=== PATIENT | male | born 1980 ===

== ENCOUNTER 2025-06-07 02:46 | Inpatient (IN) | payer MEDICAID, OTHER, SELFPAY ==
[2025-06-06 23:04] VITALS: BMI 33.5
[2025-06-06 23:05] VITALS: BP 147/125
--- NOTE | 2025-06-06 23:22 | ED.GENMED ---
History of Present Illness
General
Chief Complaint: Withdrawal Symptoms
Time Seen by Provider: 06/06/25 23:20
History of Present Illness
History of Present Illness:
FOCUSED PAST MEDICAL HISTORY
- The patient has a history of opioid use disorder
REVIEW OF OLD RECORDS
- Patient comes in from [facility].
Note:
CHIEF COMPLAINT(S)
Tachycardia and diaphoresis.
HISTORY OF PRESENT ILLNESS
The patient is a 45-year-old male with a history of fentanyl use. He reported the last use of fentanyl a few hours before arriving. Upon arrival, he experienced tachycardia with a heart rate over 120 beats per minute, diaphoresis, and an inability
to sit still. His pupils were markedly dilated, and he reported rhinorrhea and a significant tremor. The patient appeared anxious, with a Clinical Opiate Withdrawal Score (COWS) of 24. He is in police custody coming in from [facility]
PHYSICAL EXAM
- General: Appears in severe distress
- HEENT: Moist oral mucosa, marked pupillary dilatation
- Cardiovascular: No murmurs, tachycardic heart rate, regular rhythm, No chest wall tenderness
- Pulmonary: No respiratory distress, breath sounds are clear and equal
- Abdomen: Soft with no peritoneal signs, no tenderness
- Neurologic: Fair strength all extremities, no coordination deficits
- Psychiatric: Markedly tremulous
- Extremities: Nontender, no edema, moves all extremities equally
- Skin: Profuse diaphoresis, piloerection
- Neurological: Significant tremor, anxiety, and inability to sit still.
- Ophthalmological: Markedly dilated pupils.
- Skin: Profuse sweating.
PLAN
Management of opioid withdrawal symptoms.
DIFFERENTIAL DIAGNOSIS
- Opioid withdrawal syndrome
- Anxiety disorder
- Tachycardia secondary to stimulants or withdrawal
- Panic attack
- Infection causing systemic symptoms
- Endocrine disorder (e.g., hyperthyroidism)
- Cardiovascular disorder (e.g., arrhythmia)
- Alcohol withdrawal
- Benzodiazepine withdrawal
- Drug-induced hyperadrenergic state
SUMMARY OF ENCOUNTER
The patient presented with symptoms consistent with opioid withdrawal, including tachycardia, diaphoresis, dilated pupils, and tremor. After assessment, a treatment plan was initiated consisting of various symptomatic management medications.
ASSESSMENT
Opioid withdrawal syndrome.
EMERGENCY TREATMENTS ADMINISTERED
Intramuscular Valium (diazepam), intramuscular Toradol (ketorolac), oral Tylenol (acetaminophen), and oral Clonidine and Benadryl (diphenhydramine). Hydroxyzine was considered but not administered.
MEDS GIVEN IN ED
- Oral Tylenol
- Oral Clonidine
- Intramuscular Valium
- Oral Benadryl
- Intramuscular Toradol
MEDICAL DECISION MAKING
- Complexity of Data Reviewed: Chronic conditions affecting care: history of fentanyl use.
- Data:
- Category 1: No external records reviewed.
- Category 2: None mentioned.
- Category 3: No discussion of management with other providers noted.
DIAGNOSIS
F11.23 Opioid withdrawal.
Phy Exam
Physical Exam
Physical Exam:
See HPI
Course
Orders/Labs/Results
Orders:
Orders
06/06/25 23:36
Acetaminophen [Tylenol] 1,000 mg PO NOW STA
Clonidine [Catapres] 0.1 mg PO NOW STA
Diphenhydramine [Benadryl] 50 mg PO NOW STA
HydrOXYZINE [Atarax] 50 mg PO NOW STA
Ketorolac [Toradol] 30 mg IM NOW STA
Oxycodone Controlled Release [Oxycontin (Controlled Release)] 40 mg PO NOW STA
Oxycodone [Roxicodone] 10 mg PO NOW STA
Tizanidine [Zanaflex] 2 mg PO NOW STA
diazePAM [Valium Injection] 10 mg IM NOW STA
06/07/25 00:05
Ketorolac [Toradol] 30 mg .ROUTE .STK-MED ONE
06/07/25 00:36
Urine Drug Abuse Screen Urgent
06/07/25 01:02
CR Chest Portable - 1 View Urgent
Comment:
Reason For Exam: R IJ placement
Reason Study Needs to be Portable: Patient Unstable
06/07/25 01:03
Alcohol Urgent
Complete Blood Count/With Diff Urgent
Comprehensive Metabolic Panel Urgent
06/07/25 01:28
0.9% Sodium Chloride 1000 ml [Nss] 1,000 ml IV BOLUS
06/07/25 01:54
Admit/Transfer Patient As Directed
Co-Sign Provider:
Level of Care: Inpatient admission
Assign to:: ICU
Physician / Group: Dom
Diagnosis: Acute Opioid Withdrawal
Reason for Hospitalization: Acute Opioid Withdrawal
Expected length of stay greater than two midnights?: Yes
ELOS- Estimated Length of Stay in days: 3
I certify the patient meets the requirements for IP care: Yes
PRN Pain Medication Management As Directed
May give lesser potent ordered pain med per pt: Yes
preference::
Protocol:: Medication orders for pain may be administered in a
manner that supports deferring to patient preference
when the pt is:
- Requesting an ordered lesser potent pain medication.
Least to most potent pain medications are defined
as: acetaminophen < NSAID < tramadol < opioids
(morphine, oxycodone, hydromorphone).
- Requesting a lesser dose of the same medication IF
ORDERED.
- Requesting a less intrusive route of administration
if both routes are prescribed by the provider (PO <
IV).
06/07/25 01:55
Code Status As Directed
Resuscitation Status: Full Code
06/07/25 02:29
diazePAM [Valium Injection] 10 mg IV NOW STA
06/07/25 02:40
Ondansetron Injectable [Zofran] 4 mg IV Q6HPRN PRN
Abnormal Lab Results
06/07/25
01:03
WBC 13.4 H 10^3/uL
(4.8-10.8)
Abs Immat Gran (auto) 0.1 H 10^3/uL
(0-0.05)
Absolute Neuts (auto) 11.2 H 10^3/uL
(1.4-6.5)
Neutrophils % 83.9 H %
(42.2-75.2)
Lymphocytes % 11.2 L %
(20.5-51.1)
Chloride 111 H mmol/L
(98-107)
Creatinine 0.6 L mg/dL
(0.7-1.3)
06/07/25 01:03
06/07/25 01:03
Vital Signs
Initial and Last Documented VS:
Initial Vital Signs
Temp Pulse Resp BP Pulse Ox
37.0 C 81 18 147/125 99
06/06/25 23:05 06/06/25 23:05 06/06/25 23:05 06/06/25 23:05 06/06/25 23:05
Last Documented Vital Signs
Temp Pulse Resp BP Pulse Ox
36.9 C 104 31 164/92 96
06/07/25 01:40 06/07/25 02:45 06/07/25 02:45 06/07/25 02:00 06/07/25 02:45
Procedures
Central Line
Right Internal jugular:
Indication for procedure:: Poor IV access
Procedure completed by: , Dr. Encinas
Consent form signed: Yes
If no, reason: Emergency procedure
Anesthesia: 1% Lidocaine
Central line lumen: triple
Number of attempts: 1
Central line complications: none
Sterile dressing applied?: Yes
X-ray: shows good placement
*Pulse Oximetry
SaO2: 99
Oxygen Mode of Delivery: Room air
Patient hypoxic: no
*Critical Care Note
Total Time (30-74mins, 75-104mins- exclusive of procedures): 45min
comment:
The patient is becoming increasingly tachycardic, markedly elevated COWS score, requiring multiple reassessments and emergent meds given. The patient remains ill-appearing.
ED Attending Note
-
Portions of this chart may have been created with voice recognition software.� Occasional wrong word or��sound alike� substitutions may have occurred due to the inherent limitations of voice recognition software.
Discharge Plan
Departure
Patient Disposition: Admit
Date of Disposition: 06/07/25
Time of Disposition: 02:39
Presentation/result/management discussed w/ accepting MD/DO: Hospitalist
Discharge Problem:
Opiate withdrawal
Interventions
Interventions:
*Risk Screen - Suicide Last Done: 06/06/25 23:20
*General Assessment Last Done: 06/06/25 23:20
*Neglect/Abuse Screening Last Done: 06/06/25 23:20
*ED- Fall Risk Assessment Last Done: 06/06/25 23:20
*ED COVID-19 Vaccine History Last Done: 06/06/25 23:20
ED- Neurological Assessment Last Done: 06/06/25 23:24
ED-Psychological Assessment Last Done: 06/06/25 23:24
[2025-06-07] VITALS (47 sets, daily range): BP systolic 109–226; BP diastolic 60–199; BMI 31.6
[2025-06-07] MEDS: ZANAFLEX 2 MG PO ×3 (00:11→18:09)
[2025-06-07] MEDS: ROXICODONE 10 MG PO (00:11)
[2025-06-07] MEDS: TYLENOL 1000 MG PO ×3 (00:11→16:23)
[2025-06-07] MEDS: CATAPRES 0.1 MG PO ×3 (00:11→18:25)
[2025-06-07] MEDS: TORADOL 30 MG IM (00:12)
[2025-06-07] MEDS: BENADRYL 50 MG PO (00:12)
[2025-06-07] MEDS: OXYCONTIN (CONTROLLED RELEASE) 40 MG PO ×3 (00:12→16:22)
[2025-06-07] MEDS: VALIUM INJECTION 10 MG IM (00:12)
[2025-06-07 01:17] LABS: Hematocrit 41.7 % (39.0-52.0); Hemoglobin 14.2 g/dL (13.0-18.0); Mean Corp Hgb Conc. 34.1 g/dL (33.0-37.0); Mean Corpuscular Volume 87.8 fL (80.0-94.0); Nucleated Red Blood Cells % 0 % (-); Platelet Count 279 10^3/uL (130-400); Red Cell Dist. Width 13.2 % (11.5-14.5)
[2025-06-07 01:25] LABS: ALT (SGPT) 20 U/L (0-50); AST (SGOT) 20 U/L (17-59); Albumin 3.9 g/dl (3.5-5.0); Alkaline Phosphatase 76 U/L (38-126); Blood Urea Nitrogen 17 mg/dl (9-20); Calcium 9.1 mg/dl (8.4-10.2); Carbon Dioxide 27 mmol/L (22-30); Chloride 111 mmol/L (98-107); Estimated Creatinine Clearance > 125 ml/min; Glucose 91 mg/dl (70-99); Potassium 3.7 mmol/L (3.5-5.1); Sodium 143 mmol/L (135-145); Total Protein 6.8 g/dl (6.3-8.2); eGFR > 60.00
[2025-06-07] MEDS: NSS 1000 IV (01:37)
--- NOTE | 2025-06-07 02:03 | HPS.HSE ---
Family Physician
-
Family Physician: Facility [facility]
Chief Complaint
-
Withdrawal Symptoms
History of Present Illness
Patient is a 45y M with PMH significant for opioid use disorder who presents to ED complaining of withdrawal symptoms. Patient states that he typically smokes 1 bundle of fentanyl daily. His last use was about 1-2 hours prior to presentation.
Patient presents in police custody - having developed symptoms of shaking, sweating and nausea after his arrest this evening. Patient denies any N/V/D. He reports prior history of opioid withdrawal as well as prior history of inpatient
rehabilitation - last several months ago. He is currently enrolled in a methadone program - though he continues to smoke fentanyl as noted above.
Patient also uses methamphetamines on occasion - last use was about 2 days ago.
He has a prior history of IVDA - but has not used IV drugs in over a year.
Patient denies any other health issues or other prescription medications, etc.
Medical History
Past Medical History
Past Medical History: Reports Other
Additional Past Medical History:
Opioid Use Disorder
Past Surgical History: Reports None
Social History
Tobacco: Smoker (Current every day smoker.)
Alcohol: None
Drug: Other (Fentanyl (smoked / inhaled) - 1 bundle per day. Methamphetamines - occasionally. IVDA > 1 year ago.)
Family History
Family History: Not pertinent
Allergies / Home Medications
Allergies reflects when Allergies were last updated in [facility].
Home Medications with original date entered in [facility]
Allergy/Medication List:
Allergies
Allergy/AdvReac Type Severity Reaction Status Date / Time
No Known Allergies Allergy Unverified 06/06/25 23:45
Home Medications
methadone 10 mg/5 mL oral solution 40 mg PO DAILY 06/06/25
Review of Systems
-
History Source: Patient
A 12 point ROS was completed and negative except as noted: Yes
Constitutional: Reports Fatigue and Chills; Denies Fever
EENT: Denies Sore Throat
Respiratory: Denies Cough or Trouble Breathing
Cardiac: Reports Diaphoresis and Palpitations; Denies Chest Pain or Syncope
Abdomen/GI: Reports Nausea; Denies Abdominal Pain, Vomiting or Diarrhea
: Denies Dysuria or Flank Pain
Musculoskeletal: Denies Joint Pain or Edema
Neurological: Denies Dizzy or Headache
Psych: Reports Anxiety; Denies Depression
Physical Exam
Vital Signs
Vital Signs
Temp Pulse Resp BP Pulse Ox
98.4 F 69 20 161/141 97
06/07/25 01:40 06/07/25 01:15 06/07/25 01:40 06/07/25 01:00 06/07/25 00:30
Physical Exam
General: Other (Ill-appearing 45y M - diaphoretic and tremulous.)
HEENT: Moist mucous membranes and PERRLA
Respiratory: Clear; No Wheezes, Rales or Rhonchi
Cardiac: S1/S2 and Regular Rhythm; No Murmur
GI: Soft, Non Tender, Non Distended and Normal Bowel Sounds
Musculoskeletal: No Clubbing, No Cyanosis and No Edema
Neuro: AO x 3
Laboratory Results
-
06/07/25 01:03
06/07/25 01:03
Laboratory Results
Total Bilirubin 0.4 mg/dl (0.2-1.3) 06/07/25 01:03
AST 20 U/L (17-59) 06/07/25 01:03
ALT 20 U/L (0-50) 06/07/25 01:03
Alkaline Phosphatase 76 U/L (38-126) 06/07/25 01:03
Impression/Plan
-
A/P: Patient is a 45y M with PMH significant for opioid use disorder who presents to ED for evaluation of tremulousness, diaphoresis and anxiety due to opioid withdrawal.
Acute Opioid Withdrawal
Opioid Use Disorder
- Admit to ICU for further evaluation and treatment.
- Opioid withdrawal protocol with microdosing, symptom control, IVF support, etc.
- Follow for control of withdrawal symptoms / clinical improvement.
- Consider Psych eval if patient agreeable after acute withdrawal symptoms are improved.
- Consider inpatient rehabilitation if patient is agreeable.
DVT Prophylaxis: Lovenox
Code Status: Full
[2025-06-07] MEDS: VALIUM INJECTION 10 MG IV ×2 (02:33→06:15)
[2025-06-07] MEDS: ZOFRAN 4 MG IV (02:45)
[2025-06-07 04:08] LABS: Hematocrit 42.5 % (39.0-52.0); Hemoglobin 14.5 g/dL (13.0-18.0); Mean Corp Hgb Conc. 34.1 g/dL (33.0-37.0); Mean Corpuscular Volume 88.9 fL (80.0-94.0); Platelet Count 331 10^3/uL (130-400); Red Cell Dist. Width 13.1 % (11.5-14.5)
[2025-06-07] MEDS: LR 1000 IV (04:16)
[2025-06-07] MEDS: BELBUCA BUCCAL (04:18)
[2025-06-07 04:21] LABS: INR 0.95; PT 13.0 Sec (11.4-14.6)
[2025-06-07 04:22] LABS: APTT 28.1 Sec (23.4-35.0)
[2025-06-07 04:27] LABS: ALT (SGPT) 20 U/L (0-50); AST (SGOT) 22 U/L (17-59); Albumin 3.9 g/dl (3.5-5.0); Alkaline Phosphatase 74 U/L (38-126); Blood Urea Nitrogen 16 mg/dl (9-20); Calcium 9.3 mg/dl (8.4-10.2); Carbon Dioxide 25 mmol/L (22-30); Chloride 112 mmol/L (98-107); Estimated Creatinine Clearance > 125 ml/min; Glucose 84 mg/dl (70-99); Magnesium 1.9 mg/dl (1.6-2.3); Potassium 4.0 mmol/L (3.5-5.1); Sodium 147 mmol/L (135-145); Total Protein 6.8 g/dl (6.3-8.2); eGFR > 60.00
[2025-06-07] MEDS: ROXICODONE 20 MG PO ×2 (04:28→13:13)
[2025-06-07] MEDS: TRANDATE 10 MG IV (06:12)
--- NOTE | 2025-06-07 06:23 | PTCARENOTE ---
Patient received in room 3365 AAOx3, extremely diaphoretic, with vigorous tremors. Sinus tachy on the monitor. Plan of care for the shift reviewed with the patient. Patient verbalized not taking opiates such as methamphetamine and fentanyl with
admission questions. Explained to the patient that questions are being asked in order to provide the appropriate treatment and that answering 'no' to every question being asked regarding his history will make it difficult to treat him properly. When
administering the scheduled [place], the patient declined the medication as it would cause 'precept' withdrawal. Medications administered according to the COWS protocol. Valium and Labetalol 10 mg administered for SBP in the 200s. SPO2 at 90% on
room air. Patient placed on 2 liters O2/nc. Abdomen is round with positive BS. Patient bladder scanned for 785 cc and straight cath for 800 of yellow urine post urinal attempts. Right IJ TLC are patent with blood return. Site redressed due to pt's
diaphoresis. Dressings are not staying in place. LR at 150 ml/hr. Full assessment as noted on the worklist.
[2025-06-07] MEDS: ATARAX 50 MG PO (07:50)
[2025-06-07] MEDS: BELBUCA 300 MCG BUCCAL ×4 (07:50→20:55)
[2025-06-07] MEDS: CARDENE 200 IV ×2 (07:51→12:15)
--- NOTE | 2025-06-07 07:57 | CON.INTV ---
Consultation
Consultation Request
Date/Time Consultation Requested: 06/07/2025-7 AM
Date/Time Consultation Performed: 06/07/2025-7:30 AM
Requesting Provider: Hospitalist
Performing Provider: Dr. Morales
Reason for Consultation: Withdrawal/critical care management
Medical History
-
Chief Complaint: Opiate withdrawal, hypertensive emergency
History of Present Illness:
45-year-old obese smoking incarcerated male with a history of opioid use disorder presented with withdrawal symptoms-hold worker consulted for withdrawal/hypertensive emergency/critical care management 06/07/2025. The patient has significant shaking,
is alert, awake, no complaints of shortness of breath, no complaints of pain and moving all extremities.
Past Medical History
Past Medical History: None (Opioid use disorder. Cigarette smoker. Former IVDA)
Social History
Tobacco: Smoker
Alcohol: None
Drug: Narcotics (Fentanyl smokes 1 bundle per day), IVDA (Former) and Other (Occasional methamphetamines)
Living: Alf
Occupational Exposures: No known tuberculosis exposure
Environmental Exposures: No known asbestos exposure
Family History
Family History: Reviewed & Not Pertinent
Allergies / Home Medications
Allergies
Allergy/AdvReac Type Severity Reaction Status Date / Time
No Known Allergies Allergy Unverified 06/06/25 23:45
Home Medications
�Medication �Instructions �Recorded �Confirmed �Last Taken �Type
methadone 10 mg/5 mL oral solution 40 mg PO DAILY 06/06/25 06/06/25 1 Day Ago History
~06/05/25
Review of Systems
-
Unable to Obtain full review of systems at this time due to: Other (Per HPI)
Vitals / Labs / Diagnostic Testing
Vital Signs
Temp Pulse Resp BP Pulse Ox
98.5 F 105 15 226/116 97
06/07/25 03:52 06/07/25 06:12 06/07/25 05:15 06/07/25 06:12 06/07/25 06:00
Lab Data
06/07/25 03:55
06/07/25 03:55
Laboratory Results
06/07/25
03:55
PT 13.0
INR 0.95
APTT 28.1
Diagnostic Testing:
Physical Exam
-
Exam:
Well-nourished and well-developed diaphoretic and shaking
HEENT-atraumatic, normocephalic
Neck-supple, no JVD, no bruit
Heart-regular rate and rhythm-no murmurs, rubs or gallops
Chest-clear to auscultation, no wheezes, crackles
Back-no tenderness
Abdomen-soft, nontender, nondistended, no hepatosplenomegaly
Extremities-no cyanosis, clubbing, edema and good peripheral pulses
Integument-intact, no rashes, lesions or ecchymosis
Neurology-alert and oriented, nonfocal motor and sensory exam
Assessment
-
45-year-old obese smoking incarcerated male with a history of opioid use disorder presented with withdrawal symptoms-hold worker consulted for withdrawal/hypertensive emergency/critical care management 06/07/2025.
Opioid use disorder with opioid withdrawal
Hypertensive emergency
Leukocytosis
Hyponatremia
Conditions present prior to admission:
Opiate use disorder
Former IVDA
Polysubstance abuse-occasional methamphetamines, fentanyl inhalation 1 bag daily
Plan
Patient will be admitted to medical intensive care with active severe opioid withdrawal symptoms
Supplemental oxygen as needed
Intubate and mechanically ventilate if need to protect airway
Aspiration precautions
Check ABG if needed
Patient has many of the classic symptoms including gastrointestinal distress-abdominal cramping, diarrhea, nausea, lacrimation, rhinorrhea, diaphoresis, shivering and goosebumps in addition to hypertension, tachycardia, anxiety, irritability,
yawning, fever, etc.
First-line treatment is usually with buprenorphine (partial mu opioid agonist and kappa antagonist) rather than methadone or an alpha-2 adrenergic agonist (buprenorphine and methadone have been found to be superior to clonidine or lofexidine and
supervised withdrawal)
Consider following COWS-clinical opioid withdrawal scale for titration of medications
Buprenorphine 2-4 mg sublingually alone or in combination with naloxone up to 12 mg / 24 hours can be initiated
Clonidine can be added as well
Once withdrawal symptoms have been well-controlled for 24 hours a gradual taper of the patient's daily buprenorphine can begin-decrease 2 mg/day
Oxycodone coadministration to lessen the effects of withdrawal can also be initiated-example oxycodone 40 mg every 8 hours x 6 doses and then 20 mg every 8 hours x 3 doses
Methadone 10 can be used, however, need to monitor QTc and respiratory depression-methadone has a long half-life and needs to be increased cautiously
Clonidine and mhvoefwksx-juvlz-5 adrenergic agonist-can lessen many symptoms of opioid withdrawal and can relieve autonomic symptoms of sweating, diarrhea, intestinal cramps, nausea, anxiety and irritability
Consider psychiatric evaluation
Consider rehabilitation
With hypertensive emergency
Monitor for end organ effect of severe hypertension
Hydralazine as needed
Labetalol as needed
Begin nicardipine drip
Nitroprusside less attractive with potential for cyanide toxicity especially with renal insufficiency
Nitroglycerin if cardiac issues
Consider Nephrology consultation if hypertension persists
Consider workup of secondary causes including renal vascular/primary hyperaldosteronism/Baisden�s/pheochromocytoma/etc. if hypertension is difficult to control-in this patient's case it is due to opiate withdrawal
DVT prophylaxis
Nutrition
Early mobilization
Critical care statement: A total of 65 minutes of critical care time was provided for this patient today. This includes management of unstable vital signs, evaluation of the patient at bedside, reviewing the patient�s pertinent medical records
including radiographs, microbiology, laboratory evaluations, and��discussion with primary team, consultants, pharmacy, nutrition, physical therapy, case management, charge nurse, critical care nursing, and respiratory therapy.
Diagnostic data:
Chest x-ray 06/07/2025-placement of right internal jugular catheter, NAD otherwise
Data Reviewed
-
EKG: Report reviewed by me
Radiology: Report reviewed by me
Medical Tests (Nuc Med, Echo etc): Report reviewed by me
Labs: Labs reviewed by me
Critical Care Time (in minutes): 65
--- NOTE | 2025-06-07 09:00 | PTCARENOTE ---
pt restless , diaphoretic , ST on monitor with elevated BP 211/119 , IV Cardene drip started , tolerating clear liquid diet
--- NOTE | 2025-06-07 09:08 | W.PN.UPDATE ---
Update Note
Progress Note Update
Nonbillable note
1. Opioid withdrawal -patient uses 1 bundle of fentanyl apparently daily basis. Last use reported on 06/06. Patient currently encephalopathic and not able to provide any detail. Visibly tremulous/diaphoretic. Vital signs stable with significant
hypertension/tachycardia going on. Patient has been started on opiate withdrawal protocol. If not able to tolerate oral medication may require Precedex drip. Currently in ICU continue monitoring. Urine drug screen is pending.
2. Hypertensive emergency -significant elevated blood pressure of systolic 220s. Started on Cardene drip.
3. Leukocytosis without fever -chest x-ray clear. No reported abdominal or complaints. No track mortensen on examination although bacteremia needs to be ruled out if spikes fever and will require blood culture. Monitor off of antibiotics for now.
4. Hypernatremia -from decreased oral intake and volume loss with significant diaphoresis. Maintain on D5 half NS.
[2025-06-07] MEDS: D5/0.45%NACL 1000 IV ×2 (09:29→22:15)
--- NOTE | 2025-06-07 09:53 | CM ---
Addendum entered by Leatha Gong 06/07/25 09:58:
[facility] staff notified via phone that clinicals were faxed and confirmation received that fax was received
Original Note:
Plan: Discharge to [facility] when medically stable ; clinicals faxed to [facility], fax # [phone]
--- NOTE | 2025-06-07 12:37 | PTCARENOTE ---
BP controlled on carbene gtt , continues with opioid withdraw current COWS score 21 protocol followed
--- NOTE | 2025-06-07 17:37 | PTCARENOTE ---
pt weaned off of Cardene drip , COWS score 21 , protocol followed
[2025-06-07] MEDS: LOVENOX 40 MG SC (18:06)
[2025-06-08] VITALS (41 sets, daily range): BP systolic 122–177; BP diastolic 60–113; BMI 31.1
[2025-06-08] MEDS: OXYCONTIN (CONTROLLED RELEASE) 40 MG PO ×4 (00:15→22:51)
[2025-06-08] MEDS: BELBUCA 300 MCG BUCCAL (00:15)
[2025-06-08] MEDS: TYLENOL 1000 MG PO ×4 (00:15→22:52)
[2025-06-08] MEDS: CARDENE 200 IV ×2 (01:45→10:05)
--- NOTE | 2025-06-08 02:00 | PTCARENOTE ---
Cardene gtt restarted per protocol.
[2025-06-08] MEDS: ZANAFLEX 2 MG PO (04:38)
[2025-06-08 05:03] LABS: Hematocrit 42.6 % (39.0-52.0); Hemoglobin 14.5 g/dL (13.0-18.0); Mean Corp Hgb Conc. 34.0 g/dL (33.0-37.0); Mean Corpuscular Volume 88.4 fL (80.0-94.0); Platelet Count 290 10^3/uL (130-400); Red Cell Dist. Width 13.4 % (11.5-14.5)
[2025-06-08 05:34] LABS: ALT (SGPT) 18 U/L (0-50); AST (SGOT) 22 U/L (17-59); Albumin 3.8 g/dl (3.5-5.0); Alkaline Phosphatase 75 U/L (38-126); Blood Urea Nitrogen 8 mg/dl (9-20); Calcium 9.3 mg/dl (8.4-10.2); Carbon Dioxide 28 mmol/L (22-30); Chloride 108 mmol/L (98-107); Estimated Creatinine Clearance > 125 ml/min; Glucose 101 mg/dl (70-99); Magnesium 2.0 mg/dl (1.6-2.3); Potassium 3.1 mmol/L (3.5-5.1); Sodium 140 mmol/L (135-145); Total Protein 6.8 g/dl (6.3-8.2); eGFR > 60.00
[2025-06-08] MEDS: KCL 40 MEQ PO (06:17)
[2025-06-08] MEDS: KCL 270 MEQ IV (06:31)
--- NOTE | 2025-06-08 06:43 | PTCARENOTE ---
K rider and PO potassium administered by this RN per order.
[2025-06-08] MEDS: SUBUTEX 2 MG SL ×3 (08:22→22:51)
--- NOTE | 2025-06-08 09:00 | PTCARENOTE ---
pt ST on monitor , BP on 5mcg Cardene 138 systolic now on 7.5mcg , placed on contact precautions MRSA positive with nares swab
--- NOTE | 2025-06-08 09:31 | W.PN.INTV ---
Today's Communication / Plan
Recommendations
Continue to treat opiate withdrawal
Oxycodone and reducing doses
Buprenorphine
Wean clonidine
If able to be weaned off Cardene then transfer out of ICU-garment cutter will sign off-call pulmonary if respiratory issues arise
Assessment
-
45-year-old obese smoking incarcerated male with a history of opioid use disorder presented with withdrawal symptoms-garment cutter consulted for withdrawal/hypertensive emergency/critical care management 06/07/2025.
Opioid use disorder with opioid withdrawal
Hypertensive emergency
Leukocytosis-no other signs or symptoms of infection
Hyponatremia
Conditions present prior to admission:
Opiate use disorder
Former IVDA
Polysubstance abuse-occasional methamphetamines, fentanyl inhalation 1 bag daily
Plan
Remains critically ill on Cardene for hypertensive urgency
Supplemental oxygen as needed-currently 96% on room air
Aspiration precautions
Chest x-ray without infiltrate
Patient has many of the classic symptoms including gastrointestinal distress-abdominal cramping, diarrhea, nausea, lacrimation, rhinorrhea, diaphoresis, shivering and goosebumps in addition to hypertension, tachycardia, anxiety, irritability,
yawning, fever, etc.
First-line treatment is usually with buprenorphine (partial mu opioid agonist and kappa antagonist) rather than methadone or an alpha-2 adrenergic agonist (buprenorphine and methadone have been found to be superior to clonidine or lofexidine and
supervised withdrawal)
Follow COWS-clinical opioid withdrawal scale for titration of medications-decrease from 21 to today 12
Buprenorphine 2-4 mg sublingually alone or in combination with naloxone up to 12 mg / 24 hours can be initiated
Clonidine can be added as well
Once withdrawal symptoms have been well-controlled for 24 hours a gradual taper of the patient's daily buprenorphine can begin-decrease 2 mg/day
Oxycodone coadministration to lessen the effects of withdrawal can also be initiated-example oxycodone 40 mg every 8 hours x 6 doses and then 20 mg every 8 hours x 3 doses
Methadone 10 can be used, however, need to monitor QTc and respiratory depression-methadone has a long half-life and needs to be increased cautiously
Clonidine and [id number] adrenergic agonist-can lessen many symptoms of opioid withdrawal and can relieve autonomic symptoms of sweating, diarrhea, intestinal cramps, nausea, anxiety and irritability
Consider psychiatric evaluation
Consider rehabilitation
With hypertensive emergency
Monitor for end organ effect of severe hypertension
Hydralazine as needed
Labetalol as needed
Begin nicardipine drip-attempt to wean
Consider Nephrology consultation if hypertension persists
Consider workup of secondary causes including renal vascular/primary hyperaldosteronism/[place]�s/pheochromocytoma/etc. if hypertension is difficult to control-in this patient's case it is due to opiate withdrawal
DVT prophylaxis-on Lovenox
Nutrition
Early mobilization
If able to be weaned off Cardene drip then transferred out of ICU-call pulmonary if respiratory issues arise
Critical care statement: A total of 40 minutes of critical care time was provided for this patient today. This includes management of unstable vital signs, evaluation of the patient at bedside, reviewing the patient�s pertinent medical records
including radiographs, microbiology, laboratory evaluations, and��discussion with primary team, consultants, pharmacy, nutrition, physical therapy, case management, charge nurse, critical care nursing, and respiratory therapy.
Diagnostic data:
Chest x-ray 06/07/2025-placement of right internal jugular catheter, NAD otherwise
Subjective Dataa
Subjective Data
Date of Service:
Date of Service: June 08, 2025
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
Subjective:
Withdrawal symptoms improved, still going through some withdrawal, hypertension still persist, no shortness of breath, chest pain
Review of Systems
General: Other ( per HPI)
Objective Data
Data Reviewed
Vital Signs / I&O / Oxygen:
Vital Signs
Temp Pulse Resp BP Pulse Ox
98.4 F 103 24 158/82 96
06/08/25 04:52 06/08/25 06:15 06/08/25 06:15 06/08/25 06:00 06/07/25 21:00
Intake and Output
06/07/25 06/08/25 06/09/25
06:59 06:59 06:59
Intake Total 300 / 900 4115.0 / 4115.0
Output Total 2650 / 2650
Balance 300 / 900 1465.0 / 1465.0
SaO2 96
Nasal Cannula flow liters per 2
minute
Physical Exam
General: Respiratory Distress (n) and Comfortable
HEENT: Normocephalic, Anicteric and Moist Mucous Membranes
Cardiovascular: Regular Rhythm (Tachycardia)
Respiratory: Crackles (n), Rhonchi (n), Non-Labored Respirations, Accessory Resp Muscle Use (n) and Stridor (n)
GI: Soft, Non Distended and Non Tender
Neurology: Awake, Alert and No Motor Deficits
Skin: Warm, Good Color, Cyanosis (n), Jaundice (n) and Rash (n)
Labs/Micro/Reports
Lab Data
06/08/25 04:43
Microbiology
06/07/25 05:08 Nose MRSA Screen - Final
Staph aureus MRSA
[2025-06-08] MEDS: D5/0.45%NACL 1000 IV (11:51)
[2025-06-08 12:30] LABS: Blood Urea Nitrogen 7 mg/dl (9-20); Calcium 9.3 mg/dl (8.4-10.2); Carbon Dioxide 27 mmol/L (22-30); Chloride 110 mmol/L (98-107); Estimated Creatinine Clearance > 125 ml/min; Glucose 162 mg/dl (70-99); Potassium 3.6 mmol/L (3.5-5.1); Sodium 140 mmol/L (135-145); eGFR > 60.00
--- NOTE | 2025-06-08 13:17 | W.PN.HOSP.TC ---
Addendum entered and electronically signed by Roddy Rosales MD 06/18/25 15:31:
Add on to diagnosis list :
Acute toxic encephalopathy
Original Note:
Today's Communication/Plan
-
Continue per withdrawal protocol
Start Coreg for blood pressure control
Follow-up urine drug screen
monitor for fever
Assessment / Plan
Assessment / Plan
Acute Opioid Withdrawal
Opioid Use Disorder
-Currently on opiate withdrawal protocol
-COWS score remains elevated
-Getting buprenorphine/oxycodone dosing
-Of note patient was on methadone 40 mg daily prescribed by substance use clinic, last dose was on . Will not resume as patient likely will not be able to get in half-way and will potentially withdraw from methadone as well
Hypertensive emergency
- Associated with opioid withdrawal
- Urine drug screen pending, need to rule out any stimulant use
- Requiring on and off Cardene drip
- Coreg started for BP control
Leukocytosis without fever
-chest x-ray clear. No reported abdominal or complaints.
-No track mortensen on examination although bacteremia needs to be ruled out if spikes fever and will require blood culture. Monitor off of antibiotics for now.
Hypernatremia -resolved
-from decreased oral intake and with insensible loss from diaphoresis
-stop further IVF.
Hypokalemia
-replaced
Lovenox
Full code
Total critical care time 40 mins . Total critical care time documented does not include time spent on separately billed procedures or the services of residents, students, nurses or physician assistants. I personally saw and examined the patient. I
have reviewed all diagnostic interpretations and treatment plans as written. I was present for the taylor portions of any procedures performed and the inclusive time noted in any critical care statement. Critical care time includes patient management
by me, time spent at the patients bedside, time to review lab and imaging results, discussing patient care, documentation in the medical record, and time spent with the family or caregiver.
Anticipated Discharge: 24 - 48 hours
Subjective/Interval History
-
Date of Service: June 08, 2025
Improved
Remain visibly diaphoretic
Continued to remain tachycardic/hypertensive
No reported nausea vomiting diarrhea
afebrile
Objective Data
-
Labs:
Laboratory Results
06/08/25 06/08/25
04:43 12:07
WBC 16.1 H
Hgb 14.5
Hct 42.6
Plt Count 290
Sodium 140 140
Potassium 3.1 L 3.6
Chloride 108 H 110 H
Carbon Dioxide 28 27
BUN 8 L 7 L
Creatinine 0.5 L 0.5 L
Glucose 101 H 162 H
Calcium 9.3 9.3
Total Bilirubin 0.7
AST 22
ALT 18
Alkaline Phosphatase 75
Vital Signs:
Vital Signs
Temp Pulse Resp BP Pulse Ox
98.0 F 114 27 133/60 100
06/08/25 11:00 06/08/25 11:30 06/08/25 10:30 06/08/25 11:30 06/08/25 08:00
I&O
06/07/25 06/08/25 06/09/25
06:59 06:59 06:59
Intake Total 300 / 900 4115.0 / 4215.0 787.5 / 787.5
Output Total 2650 / 2650 700 / 700
Balance 300 / 900 1465.0 / 1565.0 87.5 / 87.5
Review of Systems
-
Respiratory: Reports No Symptoms
Cardiac: Reports No Symptoms
Abdomen/GI: Reports No Symptoms
Physical Exam
-
General: Negative Appears in Distress or Pain
HEENT: Negative Oxygen
Respiratory: Clear to Auscultation
Cardiac: Regular Rhythm and Tachycardic
GI: Soft, Nontender, Nondistended and Normal Bowel Sounds
Neuro: Awake, Alert and Oriented
Psych: Calm
[2025-06-08] MEDS: COREG 12.5 MG PO ×2 (13:55→19:42)
--- NOTE | 2025-06-08 14:08 | PTCARENOTE ---
cows score 8 , repeat potassium 3.6 , weaned down on Cardene gtt currently at 2.5 mg
[2025-06-08] MEDS: LOVENOX 40 MG SC (18:05)
[2025-06-08] MEDS: SUBUTEX SL (18:08)
--- NOTE | 2025-06-08 18:21 | PTCARENOTE ---
pt cardene gtt off as of 1800 , COWS score 1
--- NOTE | 2025-06-08 20:00 | PTCARENOTE ---
Resumed care of pt this evening. Received pt off cardene gtt.
[2025-06-09] VITALS (20 sets, daily range): BP systolic 132–201; BP diastolic 78–111; BMI 30.9
--- NOTE | 2025-06-09 02:30 | PTCARENOTE ---
Pt's triple lumen IJ dressing changed by this RN.
[2025-06-09 03:09] LABS: Hematocrit 45.3 % (39.0-52.0); Hemoglobin 15.2 g/dL (13.0-18.0); Mean Corp Hgb Conc. 33.6 g/dL (33.0-37.0); Mean Corpuscular Volume 89.5 fL (80.0-94.0); Platelet Count 297 10^3/uL (130-400); Red Cell Dist. Width 13.9 % (11.5-14.5)
[2025-06-09 03:51] LABS: ALT (SGPT) 18 U/L (0-50); AST (SGOT) 22 U/L (17-59); Albumin 3.6 g/dl (3.5-5.0); Alkaline Phosphatase 67 U/L (38-126); Blood Urea Nitrogen 18 mg/dl (9-20); Calcium 10.0 mg/dl (8.4-10.2); Carbon Dioxide 27 mmol/L (22-30); Chloride 111 mmol/L (98-107); Estimated Creatinine Clearance > 125 ml/min; Glucose 92 mg/dl (70-99); Potassium 4.1 mmol/L (3.5-5.1); Sodium 142 mmol/L (135-145); Total Protein 6.7 g/dl (6.3-8.2); eGFR > 60.00
--- NOTE | 2025-06-09 04:00 | PTCARENOTE ---
Pt's BP maintained while off cardene gtt.
[2025-06-09] MEDS: COREG 12.5 MG PO (07:43)
[2025-06-09] MEDS: OXYCONTIN (CONTROLLED RELEASE) 20 MG PO ×2 (07:43→15:21)
[2025-06-09] MEDS: TYLENOL 1000 MG PO ×2 (07:43→15:21)
[2025-06-09] MEDS: SUBUTEX 4 MG SL ×3 (07:44→18:03)
--- NOTE | 2025-06-09 08:05 | PTCARENOTE ---
Rec'd care of patient at 0700. Patient resting comfortably. AAOx3. Slight tremors observed. COWS 3. SB/NSR on tele monitor. Cardene off since 06/08. Lung sounds cta on RA. +BS. No BM. Appetite good. Voiding via urinal. RIJ capped. See worklist
for full assessment and care.
--- NOTE | 2025-06-09 08:12 | W.PN.INTV ---
Today's Communication / Plan
Recommendations
Continue to treat opiate withdrawal
Oxycodone and reducing doses
Buprenorphine
Patient is stable for transfer out of ICU. Will first have IV team place a peripheral IV and remove central line before transferring him out of the ICU. No additional recommendations at this time. Systems Architect/Pulmonary service will now sign off.
Please reconsult if there are any additional questions/concerns, or if patient's respiratory status deteriorates.
Assessment
-
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
Opioid use disorder with opioid withdrawal
Hypertensive emergency - now resolved
Leukocytosis-no other signs or symptoms of infection
Hyponatremia - resolved
Conditions present prior to admission:
Opiate use disorder
Former IVDA
Polysubstance abuse-occasional methamphetamines, fentanyl inhalation 1 bag daily
Plan
Patient has improved, now been off Cardene since yesterday.
Supplemental oxygen as needed
Aspiration precautions
Initially, patient had many of the classic symptoms including gastrointestinal distress-abdominal cramping, diarrhea, nausea, lacrimation, rhinorrhea, diaphoresis, shivering and goosebumps in addition to hypertension, tachycardia, anxiety,
irritability, yawning, fever, etc.
First-line treatment is usually with buprenorphine (partial mu opioid agonist and kappa antagonist) rather than methadone or an alpha-2 adrenergic agonist (buprenorphine and methadone have been found to be superior to clonidine or lofexidine and
supervised withdrawal)
Follow COWS-clinical opioid withdrawal scale for titration of medications
Continue with micro induction protocol, with plans to ultimately have him be discharged on Subutex
Supportive medications for withdrawal symptoms including hydroxyzine, clonidine, Zanaflex, Tylenol, Zofran and Imodium
Methadone 10 can be used, however, need to monitor QTc and respiratory depression-methadone has a long half-life and needs to be increased cautiously
Consider psychiatric evaluation - currently has no SI or HI, and has capacity to make his own decisions
Consider rehabilitation
Blood pressure has markedly improved, now off Cardene since 06/08
Continue with Coreg with goal BP <140/90
Hydralazine as needed
Labetalol as needed
Consider Nephrology consultation if hypertension persists
Consider workup of secondary causes including renal vascular/primary hyperaldosteronism/[place]�s/pheochromocytoma/etc. if hypertension is difficult to control-in this patient's case it is due to opiate withdrawal
DVT prophylaxis-on Lovenox
Nutrition
Early mobilization
Patient is stable for transfer out of ICU. Will first have IV team place a peripheral IV and remove central line before transferring him out of the ICU. No additional recommendations at this time. Systems Architect/Pulmonary service will now sign off.
Thank you for allowing us to be involved in the care of this patient. Please reconsult if there are any additional questions/concerns, or if patient's respiratory status deteriorates.
Diagnostic data:
Chest x-ray 06/07/2025-placement of right internal jugular catheter, NAD otherwise
Subjective Dataa
Subjective Data
Date of Service:
Date of Service: June 09, 2025
Chief Complaint: Systems Architect Follow Up and Pulmonary Follow Up
Subjective:
Patient was seen and evaluated this AM. He has been off Cardene since yesterday evening. Police officers at bedside. Patient is resting in bed in no acute distress. Heart rate 66, BP 144/89. He is on room air breathing comfortably.
Review of Systems
General: Other (Negative unless mentioned above)
Objective Data
Data Reviewed
Vital Signs / I&O / Oxygen:
Vital Signs
Temp Pulse Resp BP Pulse Ox
98.2 F 67 13 144/89 94
06/09/25 08:00 06/09/25 10:00 06/09/25 10:00 06/09/25 10:00 06/09/25 07:51
Intake and Output
06/08/25 06/09/25 06/10/25
06:59 06:59 06:59
Intake Total 4115.0 / 4215.0 1542.5 / 1542.5
Output Total 2650 / 2650 1400 / 2225 825 / 825
Balance 1465.0 / 1565.0 142.5 / -682.5 -825 / -825
SaO2 94
Nasal Cannula flow liters per 2
minute
Physical Exam
General: Respiratory Distress (n) and Comfortable
HEENT: Normocephalic, Anicteric and Moist Mucous Membranes
Cardiovascular: S1-S2 and Peripheral Edema (n)
Respiratory: Wheeze (n), Crackles (n), Rhonchi (n), Non-Labored Respirations, Accessory Resp Muscle Use (n) and Stridor (n)
GI: Soft, Non Distended and Non Tender
Neurology: Awake, Alert and Oriented
Skin: Warm, Dry, Good Color, Cyanosis (n), Jaundice (n) and Rash (n)
Labs/Micro/Reports
Lab Data
06/09/25 03:00
06/09/25 03:00
Microbiology
06/07/25 05:08 Nose MRSA Screen - Final
Staph aureus MRSA
--- NOTE | 2025-06-09 11:34 | PN.CDI ---
CDI
- -
CDI:
Physician Documentation Request
Admit Date: 06/07/25 02:46
Dear Doctor Bobby,
Clinical Indicators:
Patient admitted with opioid withdrawal.
06/07 PN, 'Opioid withdrawal -patient uses 1 bundle of fentanyl apparently daily basis. Last use reported on 06/06. Patient currently encephalopathic and not able to provide any detail. '
Please clarify the type of encephalopathy:
Toxic Metabolic Encephalopathy
Other Encephalopathy, please specify type
Other, please specify
Use of terms such as suspected, likely, concern for, or probable (associated with a specific diagnosis that is being evaluated, monitored, or treated as if it exists) are acceptable and can be coded in the inpatient setting, when documented at the
time of discharge.
Thank you,
ELY Freitas RN
CDI Specialist
available via tiger text
Please use your independent medical judgment in providing your response.
--- NOTE | 2025-06-09 13:32 | W.PN.HOSP.TC ---
Today's Communication/Plan
-
Monitor vitals
See plan
Downgrade if stable off Cardene drip
Continue Coreg
Continue with opiate withdrawal protocol
Assessment / Plan
Assessment / Plan
General: Negative Appears in Distress or Pain
HEENT: Negative Oxygen
Respiratory: Clear to Auscultation
Cardiac: Regular Rhythm and Tachycardic
GI: Soft, Nontender, Nondistended and Normal Bowel Sounds
Neuro: Awake, Alert and Oriented
Psych: Calm
Acute Opioid Withdrawal
Opioid Use Disorder
-Currently on opiate withdrawal protocol
-COWS score remains elevated
-Getting buprenorphine/oxycodone dosing
-Of note patient was on methadone 40 mg daily prescribed by substance use clinic, last dose was on . Will not resume as patient likely will not be able to get in alf and will potentially withdraw from methadone as well
Hypertensive emergency
- Associated with opioid withdrawal
- +fentanyl
- off Cardene drip
- Coreg started for BP control
Leukocytosis without fever
Monitor
-chest x-ray clear. No reported abdominal or complaints.
-No track mortensen on examination although bacteremia needs to be ruled out if spikes fever and will require blood culture. Monitor off of antibiotics for now.
Hypernatremia -resolved
-from decreased oral intake and with insensible loss from diaphoresis
-stop further IVF.
Hypokalemia
-replaced
Lovenox
Full code
Anticipated Discharge: Within 24 hours
Subjective/Interval History
-
Date of Service: June 09, 2025
sleeping
Objective Data
-
Labs:
Laboratory Results
06/09/25
03:00
WBC 13.7 H
Hgb 15.2
Hct 45.3
Plt Count 297
Sodium 142
Potassium 4.1
Chloride 111 H
Carbon Dioxide 27
BUN 18
Creatinine 0.6 L
Glucose 92
Calcium 10.0
Total Bilirubin 0.6
AST 22
ALT 18
Alkaline Phosphatase 67
Vital Signs:
Vital Signs
Temp Pulse Resp BP Pulse Ox
98.4 F 62 17 151/95 94
06/09/25 12:00 06/09/25 12:00 06/09/25 12:00 06/09/25 12:00 06/09/25 07:51
I&O
06/08/25 06/09/25 06/10/25
06:59 06:59 06:59
Intake Total 4115.0 / 4215.0 1542.5 / 1542.5
Output Total 2650 / 2650 1400 / 2225 825 / 825
Balance 1465.0 / 1565.0 142.5 / -682.5 -825 / -825
--- NOTE | 2025-06-09 14:45 | PTCARENOTE ---
Addendum entered by Tata Polo RN 06/09/25 15:58:
Discussed with pharmacist; PRN Catapres administered for hypertension associated to opioid withdrawal.
Original Note:
RIJ removed by VAT. Peripheral site placed in left forearm. BP elevated. Termination Clerk contacted regarding orders.
--- NOTE | 2025-06-09 14:57 | CM ---
Discharge POC: [facility] when medically stable.
[2025-06-09] MEDS: CATAPRES 0.1 MG PO (15:23)
--- NOTE | 2025-06-09 16:38 | PTCARENOTE ---
Hypertension persists. Hospitalist contacted for orders. PRN Hydralazine ordered.
[2025-06-09] MEDS: APRESOLINE 10 MG IV (16:41)
[2025-06-09] MEDS: ZANAFLEX 2 MG PO (16:41)
--- NOTE | 2025-06-09 16:49 | PTCARENOTE ---
Patient released from police custody. Assisted in calling his father to update. Patient tearful, discussing relapse/previous sobriety with RN. Patient stating May is a difficult month due to multiple deaths in the family, including his .
Emotional support and reassurance provided.
[2025-06-09] MEDS: LOVENOX SC (18:04)
--- NOTE | 2025-06-09 18:17 | PTCARENOTE ---
Around 1800, patient pulled off leads/wires. Rang call ruffin to notify RN he is leaving. Patient AAOx3. Father present at bedside to take patient home. IV access removed. Occupancy Specialist at bedside to sign AMA paperwork. Hospitalist notified.
--- NOTE | 2025-06-09 18:27 | W.PN.UPDATE ---
Update Note
Progress Note Update
Notified by nursing staff that the patient wants to leave AMA. I then saw the patient, he was awake, alert, had capacity to make his own decisions, and his father was at bedside and said that the plan was to take him to rehab tomorrow. There
apparently is a program specifically that he wants to go to where they do 90-day inpatient rehab and the patient is interested in this as well. Patient signed the AMA forms, and left in stable condition. Nursing staff available as well as witness.
--- NOTE | 2025-06-10 08:20 | W.DCSUMMARY ---
Discharge Summary
Discharge Data
Date of Admission: 06/07/25
Date of Discharge: 06/09/25
-
Pending Results: Yes
Hospital Course
Discharge diagnosis:
Acute opioid withdrawal
Opiate use disorder
Hypertensive emergency
Leukocytosis
Hypernatremia
Hospital Course:
45-year-old male [facility] with acute opioid withdrawal after taking fentanyl. While hospitalized patient was started on opiate withdrawal protocol. He also had hypertensive emergency for which he was started on Cardene drip
along with Coreg. Patient initially appeared to be in custody however was later released by penitentiary. Fortunately's, patient decided to leave AGAINST MEDICAL ADVICE. Risk of leaving AMA was discussed with patient however he still chose to leave
AMA. Patient left AMA on 06/09/2025.
Discharge Plan
-
Patient Disposition: Against Medical Advice
Referrals:
[facility] [Family Provider, General]
Prescriptions:
No Action
methadone 10 mg/5 mL Solution
40 mg PO DAILY
Discharge Date and Time
Discharge Date/Time: 06/09/25 18:14
Print Language: MONGOLIAN
--- NOTE | 2025-06-10 09:26 | CM ---
Patient was released from police custody yesterday. He decided to discharge AMA. He called his father for transport. Father says he will go to an inpatient [facility] rehab he has had success with in the past. aware and completed A paperwork.
== END 2025-06-09 18:14 | disposition left against medical advice (07) | DRG 894 ==
LOC: ICU 02:46
PROVIDERS: Hospitalist; Nurse Practitioner Family; ADMITTING PHYSICIAN Hospitalist; ATTENDING PHYSICIAN Internal Medicine; CONSULT PHYSICIAN Internal Medicine Critical Care Medicine; EMERGENCY PHYSICIAN Emergency Medicine
PROC: 02HV33Z Insertion of Infusion Device into Superior Vena Cava, Percutaneous Approach (ICD-10-PCS; 2025-06-07)
DX: F11.93 Opioid use, unspecified with withdrawal (principal); G92.9 Unspecified toxic encephalopathy; I16.1 Hypertensive emergency; E87.0 Hyperosmolality and hypernatremia; D72.829 Elevated white blood cell count, unspecified; F17.210 Nicotine dependence, cigarettes, uncomplicated; F41.9 Anxiety disorder, unspecified; G93.89 Other specified disorders of brain; E66.9 Obesity, unspecified; I10 Essential (primary) hypertension; Z68.30 Body mass index [BMI] 30.0-30.9, adult; Z53.29 Procedure and treatment not carried out because of patient's decision for other reasons
CPT/HCPCS: 36556; 71045; 80048; 80053; 80076; 80307; 82077; 83735; 84100; 85025; 85027; 85610; 85730; 87070; 87147; 93005; 96360; 96372; 99291